=== PATIENT | female | born 1950 | race African-American/Black ===

== ENCOUNTER → 2018-01-03 | Outpatient (CLI) | payer MEDICARE, MEDICAID | END | disposition home or self-care (01) | LOC: MAMMO 10:42 | PROVIDERS: ATTEND Specialist | DX: Z12.31 Encounter for screening mammogram for malignant neoplasm of breast (principal); R92.1 Mammographic calcification found on diagnostic imaging of breast | CPT/HCPCS: 77067 ==

== ENCOUNTER 2018-07-12 16:30 | Inpatient (IN) | payer MEDICARE, MEDICAID ==
[~2018-07-12] VITALS: Ht 167.6 cm; Wt 83.0 kg
[2018-07-12] MEDS ORDERED: SODIUM CHLORIDE 0.9% 1,000 ML IV ONE (20:12)
[2018-07-12] MEDS ORDERED: KETOROLAC 30MG/ML VIAL IV STA (20:12)
[2018-07-12] MEDS ORDERED: ONDANSETRON HCL 4MG/2ML INJ IV STA (20:12)
[2018-07-12] MEDS ORDERED: MORPHINE SULFATE 4 MG/ML CPJ (NOT FOR IM USE) IV STA (20:12)
[2018-07-12] MEDS ORDERED: PIPERACILLIN/TAZ 3.375G PREMIX 50 ML IV ONE (20:15)
[2018-07-12] MEDS ORDERED: VANCOMYCIN 1 G PREMIX 200 ML IV ONE (20:15)
[2018-07-12 21:50] LABS: CLARITY URINE CLEAR (CLEAR); COLOR URINE YELLOW (YELLOW); KETONES URINE NEGATIVE (NEGATIVE); LEUKOCYTE ESTERASE URINE NEGATIVE (NEGATIVE); NITRITE URINE NEGATIVE (NEGATIVE); OCCULT BLOOD URINE NEGATIVE (NEGATIVE); PROTEIN URINE NEGATIVE (NEGATIVE); SPECIFIC GRAVITY URINE 1.021 (1.005-1.030)
[2018-07-12 21:52] LABS: BASOPHILS % 1.9 % (0.0-2.0); EOSINOPHILS % 8.2 % (0.0-5.0); HEMATOCRIT. 38.5 % (36.0-48.0); HEMOGLOBIN. 13.1 g/dL (12.0-16.0); LYMPHOCYTES % 26.1 % (20.0-50.0); MEAN CORPUSCULAR HEMOGLOBIN 30.1 pg (28.0-32.0); MEAN CORPUSCULAR VOLUME 88.4 fL (81.0-99.0); MEAN PLATELET VOLUME 8.8 fl (7.4-10.4); MONOCYTES % 7.9 % (2.0-8.0); NEUTROPHILS % 55.9 % (40.0-76.0); PLATELET 188 x1000/uL (130-400); RED BLOOD CELL COUNT 4.35 mill/uL (4.2-5.4); RED CELL DISTRIBUTION WIDTH 14.5 % (11.6-14.6)
[2018-07-12 21:57] LABS: PROTHROMBIN TIME 10.5 sec (9.1-11.1)
[2018-07-12 21:58] LABS: CHLORIDE 110 mEq/L (98-107)
[2018-07-12] MEDS ORDERED: ONDANSETRON HCL 4MG/2ML INJ IV PRN (22:45)
[2018-07-12] MEDS ORDERED: MAGNESIUM/ALUMINUM HYDROXIDE/SIMETHICONE 30ML UDC PO PRN (22:45)
[2018-07-12] MEDS ORDERED: TRAMADOL 50MG TABLET PO PRN (22:45)
[2018-07-12] MEDS ORDERED: CLONIDINE 0.1MG TABLET PO PRN (22:45)
[2018-07-12] MEDS ORDERED: ACETAMINOPHEN 325MG TABLET PO PRN (22:45)
[2018-07-13] VITALS: BP 140/82
[2018-07-13] MEDS ORDERED: ASPI-1159 PO (03:36)
[2018-07-13] MEDS ORDERED: CLOP75TA16 PO (03:36)
[2018-07-13] MEDS ORDERED: ATEN-176 PO (03:36)
[2018-07-13] MEDS ORDERED: LOSA100T14 PO (03:36)
[2018-07-13] MEDS ORDERED: ALBU90AE INH (03:36)
[2018-07-13] MEDS ORDERED: ATOR20TA65 PO (03:36)
[2018-07-13 04:00] VITALS: BP 151/68
[2018-07-13 06:45] LABS: BASOPHILS % 2.5 % (0.0-2.0); EOSINOPHILS % 8.1 % (0.0-5.0); HEMATOCRIT. 39.2 % (36.0-48.0); LYMPHOCYTES % 26.4 % (20.0-50.0); MEAN CORPUSCULAR HEMOGLOBIN 29.4 pg (28.0-32.0); MEAN CORPUSCULAR VOLUME 88.7 fL (81.0-99.0); MEAN PLATELET VOLUME 8.7 fl (7.4-10.4); PLATELET 177 x1000/uL (130-400); RED BLOOD CELL COUNT 4.42 mill/uL (4.2-5.4); RED CELL DISTRIBUTION WIDTH 14.7 % (11.6-14.6)
[2018-07-13 07:15] LABS: CHLORIDE 111 mEq/L (98-107)
[2018-07-13 08:00] VITALS: BP 132/74
[2018-07-13] MEDS ORDERED: CLOPIDOGREL 75MG TABLET PO NR (10:15)
[2018-07-13] MEDS ORDERED: ASPIRIN 81MG EC TABLET PO NR (10:15)
[2018-07-13 12:00] VITALS: BP 143/72
[2018-07-13] MEDS: CEFAZOLIN 1000MG PREMIX 50 ML IV SCH ×2 (17:30→23:44)
[2018-07-13 20:00] VITALS: BP 123/67
[2018-07-13] MEDS: ATORVASTATIN CALCIUM 20MG TABLET PO SCH (21:35)
[2018-07-13] MEDS: LOSARTAN POTASSIUM 50 MG TABLET PO SCH (21:35)
[2018-07-14] VITALS: BP 101/69
[2018-07-14 04:00] VITALS: BP 118/58
[2018-07-14] MEDS: CEFAZOLIN 1000MG PREMIX 50 ML IV SCH ×3 (06:01→23:26)
[2018-07-14 07:51] LABS: BASOPHILS % 2.2 % (0.0-2.0); EOSINOPHILS % 8.3 % (0.0-5.0); HEMATOCRIT. 38.4 % (36.0-48.0); HEMOGLOBIN. 12.9 g/dL (12.0-16.0); MEAN CORPUSCULAR HEMOGLOBIN 29.7 pg (28.0-32.0); MEAN CORPUSCULAR VOLUME 88.5 fL (81.0-99.0); MONOCYTES % 9.4 % (2.0-8.0); NEUTROPHILS % 48.1 % (40.0-76.0); PLATELET 184 x1000/uL (130-400); RED BLOOD CELL COUNT 4.34 mill/uL (4.2-5.4); RED CELL DISTRIBUTION WIDTH 14.5 % (11.6-14.6)
[2018-07-14 07:59] LABS: CHLORIDE 108 mEq/L (98-107)
[2018-07-14 08:00] VITALS: BP 111/54
[2018-07-14] MEDS: LOSARTAN POTASSIUM 50 MG TABLET PO SCH ×2 (08:23→21:00)
[2018-07-14] MEDS: ASPIRIN 81MG EC TABLET PO SCH (08:23)
[2018-07-14] MEDS: CLOPIDOGREL 75MG TABLET PO SCH (08:23)
[2018-07-14 14:00] VITALS: BP 111/56
[2018-07-14 16:00] VITALS: BP 130/72
[2018-07-14 20:00] VITALS: BP 134/49
[2018-07-14] MEDS: ATORVASTATIN CALCIUM 20MG TABLET PO SCH (21:00)
[2018-07-15] VITALS: BP 136/85
[2018-07-15 04:00] VITALS: BP 115/46
[2018-07-15] MEDS: CEFAZOLIN 1000MG PREMIX 50 ML IV SCH ×3 (06:05→23:11)
[2018-07-15 07:57] LABS: BASOPHILS % 1.8 % (0.0-2.0); EOSINOPHILS % 6.4 % (0.0-5.0); HEMATOCRIT. 39.2 % (36.0-48.0); HEMOGLOBIN. 13.3 g/dL (12.0-16.0); LYMPHOCYTES % 36.4 % (20.0-50.0); MEAN CORPUSCULAR HEMOGLOBIN 29.9 pg (28.0-32.0); MEAN CORPUSCULAR VOLUME 88.5 fL (81.0-99.0); MEAN PLATELET VOLUME 8.8 fl (7.4-10.4); MONOCYTES % 7.6 % (2.0-8.0); NEUTROPHILS % 47.8 % (40.0-76.0); PLATELET 194 x1000/uL (130-400); RED BLOOD CELL COUNT 4.43 mill/uL (4.2-5.4); RED CELL DISTRIBUTION WIDTH 14.4 % (11.6-14.6)
[2018-07-15 08:00] VITALS: BP 120/90
[2018-07-15] MEDS: ASPIRIN 81MG EC TABLET PO SCH (08:37)
[2018-07-15] MEDS: LOSARTAN POTASSIUM 50 MG TABLET PO SCH ×2 (08:37→20:56)
[2018-07-15] MEDS: CLOPIDOGREL 75MG TABLET PO SCH (08:37)
[2018-07-15 09:21] LABS: CHLORIDE 107 mEq/L (98-107)
[2018-07-15 13:00] VITALS: BP 134/79
[2018-07-15 16:00] VITALS: BP 140/70
[2018-07-15 20:45] VITALS: BP 121/57
[2018-07-15] MEDS: ATORVASTATIN CALCIUM 20MG TABLET PO SCH (20:56)
[2018-07-16 00:07] VITALS: BP 172/61
[2018-07-16 04:00] VITALS: BP 129/70
[2018-07-16] MEDS: CEFAZOLIN 1000MG PREMIX 50 ML IV SCH (06:06)
[2018-07-16 08:00] VITALS: BP 138/85
[2018-07-16] MEDS: LOSARTAN POTASSIUM 50 MG TABLET PO SCH (08:54)
[2018-07-16] MEDS: ASPIRIN 81MG EC TABLET PO SCH (08:54)
[2018-07-16] MEDS: CLOPIDOGREL 75MG TABLET PO SCH (08:54)
[2018-07-16 10:26] VITALS: BP 138/85
[2018-07-16] MEDS ORDERED: CEFAZOLIN 1000MG PREMIX 50 ML IV SCH (22:00)
== END 2018-07-16 10:45 | disposition home health service (06) | DRG 603 ==
LOC: ER 16:30 → 7WST 22:19 → EDBEDREQTM 22:20 → EDBEDREQSVC 22:20 → EDBEDREQ 22:20 → CANRESERV 22:23 → ENRESERV 22:23
PROVIDERS: ADMIT Family Medicine Adult Medicine; ATTEND Family Medicine Adult Medicine
DX: L03.114 Cellulitis of left upper limb (principal); I69.354 Hemiplegia and hemiparesis following cerebral infarction affecting left non-dominant side; E11.9 Type 2 diabetes mellitus without complications; D72.1 Eosinophilia; D63.8 Anemia in other chronic diseases classified elsewhere; E78.00 Pure hypercholesterolemia, unspecified; E78.5 Hyperlipidemia, unspecified; I10 Essential (primary) hypertension; E66.9 Obesity, unspecified; I25.10 Atherosclerotic heart disease of native coronary artery without angina pectoris; R00.1 Bradycardia, unspecified; Z60.2 Problems related to living alone; Z79.02 Long term (current) use of antithrombotics/antiplatelets; Z79.899 Other long term (current) drug therapy; Z91.14 Patient's other noncompliance with medication regimen; Z68.29 Body mass index [BMI] 29.0-29.9, adult; Z88.6 Allergy status to analgesic agent
CPT/HCPCS: 36415; 71045; 80048; 80053; 81003; 83605; 83735; 84145; 84443; 84484; 85025; 85610; 87040; 87086; 93005; 93970; 93971; 96365; 96367; 99285; J0690; J2543; J3370; J7030